=== PATIENT | female | born 1950 | race Caucasian/White ===

== ENCOUNTER 2025-05-19 10:41 | Emergency (ER) | payer MEDICARE ==
[2025-05-19] MEDS ORDERED: Iopamidol 370 76% 100 ML VIAL ONE (11:07)
[2025-05-19] MEDS ORDERED: niCARdipine 25 MG/10 ML SDV ONE ×2 (11:24→16:25)
[2025-05-19 11:57] LABS: #Basophils Less than 0.03 10x3/uL (0.0-0.2); #Eosinophils 0.09 10x3/uL (0.0-0.5); #Monocytes 0.37 10x3/uL (0.0-1.1); #Neutrophils 2.55 10x3/uL (1.5-8.4); %Basophils 0.5 % (0.0-2.0); %Eosinophils 2.0 % (0.0-6.0); %Lymphocytes 31.5 % (18.0-47.0); %Monocytes 8.3 % (0.0-10.0); %Neutrophils 57.5 % (40.0-75.0); Hematocrit 42.8 % (34.9-44.5); Hemoglobin 14.7 g/dL (12.0-15.5); Mean Corpuscular Hemoglobin 32.7 pg (27.0-33.0); Mean Corpuscular Volume 95.3 fL (81.6-98.3); Platelet Count 215 10x3/uL (150-450); Red Blood Cell (RBC) Count 4.49 10x6/uL (3.90-5.03); White Blood Cell (WBC) Count 4.44 10x3/uL (3.5-10.5)
[2025-05-19 12:11] LABS: INR-International Normal Ratio 1.3; PTT 31.7 sec (22.0-33.0); Prothrombin Time 14.1 sec (9.5-12.1)
[2025-05-19 12:26] LABS: ALT (SGPT) 10 U/L (Less than 34); AST (SGOT) 16 U/L (11-34); Albumin 3.6 g/dL (3.1-4.5); Alkaline Phosphatase 56 U/L (40-110); Anion Gap 11 mmol/L (10-20); BUN (Urea Nitrogen) 12 mg/dL (9.8-20.1); Bilirubin, Total 0.5 mg/dL (0.3-1.2); Calc. Creatinine Clearance 0 mL/min (70-130); Calcium 9.2 mg/dL (7.8-10.44); Carbon Dioxide 29 mmol/L (23-31); Chloride 102 mmol/L (98-107); Globulin 2.5 g/dL (2.4-3.5); Glucose 85 mg/dL (83-110); Potassium 3.9 mmol/L (3.5-5.1); Sodium 138 mmol/L (136-145)
== END 2025-05-19 19:22 | disposition short-term general hospital (02) ==
LOC: CSHERS 10:41
DX: I61.8 Other nontraumatic intracerebral hemorrhage (principal); R29.810 Facial weakness; I48.91 Unspecified atrial fibrillation; R29.702 NIHSS score 2; F17.210 Nicotine dependence, cigarettes, uncomplicated; Z79.01 Long term (current) use of anticoagulants
CPT/HCPCS: 70450; 70496; 70498; 71045; 80053; 85025; 85610; 85730; 93005; 94760; J7168